=== PATIENT | male | born 1960 | race Caucasian/White ===

== ENCOUNTER 2017-11-26 17:20 | Emergency (ER) | payer MEDICAID, SELFPAY ==
[2017-11-26 17:21] VITALS: BP 127/93; PULSE 74; RESP 16; TEMP 37; O2SAT 96
--- NOTE | 2017-11-26 17:26 | DI.RPTCT_ITS ---
SYMPTOM/DIAGNOSIS: FELL OFF HORSE, ECCHYMOSIS AND PAIN RT FLANK AND LOWER RIBS CHEST, ABDOMEN AND PELVIS CT: 11/26 CT examination of the chest abdomen and pelvis was performed with a bolus infusion of 100 cc Omnipaque 350. There are nondisplaced fractures of the right 10th and 11th ribs posterolaterally. No additional bony injury seen. The lungs are clear. No pleural effusion, pneumothorax or hemothorax. No mediastinal hematoma seen. No vascular injury seen. Tracheal bronchial tree appears intact. Liver, spleen, pancreas, adrenals and kidneys appear normal with no evidence of acute injury. No evidence of vascular injury in the abdomen or pelvis. No abdominal wall injury seen. Small right flank hematoma seen in the subcutaneous fat. No evidence of bowel injury. Appendix appears normal. No abdominal or pelvic adenopathy seen. CONCLUSION: Rib fractures 10th and 11th ribs posterolaterally. No solid organ injury identified. No vascular injury seen.
[2017-11-26 17:40] LABS: Abs Immature Grans 0.05 k/cumm (0.0-0.09); Basophils % 0.7; Eosinophils % 3.2; HCT 42.9 % (40.0-50.0); HGB 14.7 g/dL (13.5-17.5); Immature Grans % 0.4; Lymphocytes % 23.4; Mean Corp. HGB Concentration 34.3 g/dL (32.0-36.0); Mean Corpuscular Hemoglobin 30.6 pg (27.0-33.0); Mean Corpuscular Volume 89.2 fL (80-95); Mean Platelet Volume 10.5 fL (8.0-11.0); Neutrophils % 65.3; Platelet Count 244 x1000/uL (130-400); RBC 4.81 m/cumm (4.50-6.00); RBC Distribution Width 14.5 % (11.8-14.1); White Blood Cell Count 13.65 k/cumm (4.4-10.8)
--- NOTE | 2017-11-26 17:41 | ED.GENADUL_ITS ---
Disposition Clinical Impression: Ribs, multiple fractures Disposition: HOME Condition: Fair Instructions: Rib Fracture (ED) Additional Instructions: Encourage hydration. Encourage deep breathing, use incentive spirometer as was directed by respiratory therapy. Tylenol and/or ibuprofen as needed for discomfort. He may use 1000 mg of Tylenol 4 times daily, 600 mg of ibuprofen 4 times daily. Please stop smoking. Discussed smoking cessation and rib fractures at upcoming appointment with primary care. You may splint the right side with a pillow when coughing to help with discomfort. If you develop difficulty breathing, shortness of breath, increased pain, fever/chills, cough or the new/worsening symptoms please seek care urgently once again. Prescriptions: Ibuprofen 600 mg PO QID PRN #20 tablet PRN Reason: Pain Referrals: Elissa Lam NP [NURSE PRACTITIONER] - Medical Decision Making - Lab Data Laboratory Tests 11/26/17 11/26/17 17:30 17:30 WBC 13.65 H RBC 4.81 Hgb 14.7 Hct 42.9 MCV 89.2 MCH 30.6 MCHC 34.3 RDW 14.5 H Plt Count 244 MPV 10.5 Immature Gran % 0.4 Neutrophils % 65.3 Lymphocytes % 23.4 Monocytes % 7.0 Eosinophils % 3.2 Basophils % 0.7 Absolute Neutrophils 8.91 H Absolute Lymphocytes 3.19 Absolute Monocytes 0.96 H Absolute Eosinophils 0.44 Absolute Basophils 0.10 Sodium 136 Potassium 4.1 Chloride 101 Carbon Dioxide 26.7 Anion Gap 8.3 BUN 16 Creatinine 1.22 Estimated GFR/1.73 m2 >= 60.00 Glucose 108 H Calcium 8.5 Total Bilirubin 0.3 AST 25 ALT 30 Alkaline Phosphatase 93 Total Protein 7.1 Albumin 3.2 L Results reviewed for labs ordered during visit: Yes - Radiology Data Radiology results: report reviewed Right CT of chest, abdomen and pelvis was reviewed by radiologist. Advised that the lungs show minimal dependent changes within the lung bases. No pneumothorax. No significant effusion. Heart is unremarkable no cardiomegaly. No significant pericardial effusion. Liver is unremarkable no mass. Gallbladder is unremarkable no calcified stones or ductal dilation. Pancreas is unremarkable, no ductal dilation or mass. Splenomegaly. The adrenals are significant for mild thickening of the adrenal glands, likely hyperplasia. Kidneys are unremarkable, no hydronephrosis, no solid mass. Stomach and bowel is unremarkable with no obstruction or mucosal thickening. Intraperitoneal space is unremarkable. No significant fluid collection or free air. Joints significant for acute nondisplaced fractures of the right 10th and 11th ribs. Smoothly marginated ossification abutting the anterior surface of the inferior angle of the right scapula likely the sequela of old trauma. An old ununited fracture of the osteochondroma is also possible given the appearance of bone experience. No dislocation. Soft tissues are unremarkable. Vasculature is significant for mild arthrosclerosis of the left subclavian artery origin. No significant stenosis. Mild sclerosis of the abdominal aorta and iliac arteries. No aneurysm. Lymph nodes are unremarkable, no enlarged lymph nodes. - Medical Decision Making Patient presents today after falling off a horse. He has a 12 cm area of swelling and discoloration just inferior to the right CVA. No midline tenderness. No saddle paresthesias. Good range of motion of the lower extremities with no pain. No pain with testing of the pelvis. No abdominal pain. No chest pain. Patient has no midline tenderness over his spine. Good range of motion of his neck without any discomfort. Patient did not strike his head, no LOC. Patient does not have any pain elicited with deep inspiration. Lungs are clear in all carreon. However, patient does have discomfort elicited with coughing. Points to the right CVA as area of pain with coughing. Patient has not had anything as of yet for his discomfort is declining any analgesics at this time. I am concerned given the area of discomfort, mechanism of injury that he may have internal injury. Will obtain CT to evaluate. Discussed this plan with the patient who is in agreement. Vital signs are within normal limits. CT concerning for nondisplaced fractures of the right 10th and 11th ribs. I discussed these findings with the patient.. Encourage deep breathing. I have asked respiratory instructed patient on how to use incentive spirometer. I did advise smoking cessation. Patient does report that he would like to stop smoking. He is going to discuss this further with his primary care upcoming appointment on Friday. Patient is now requesting analgesics. Will give IV Toradol. We discussed [id number] home regimen to help with discomfort. As the patient's pain has been minimal and well-controlled I do not feel that narcotics are appropriate at this point. I am concerned given the low level of discomfort, this may cause him to have increased shallow breathing and increase his risk of pneumonia. I discussed this with the patient. He did respond well to the IV Toradol. Is moving about the room with ease. Patient has upcoming appointment with primary care on Friday for routine checkup. Advised he discuss this further with them as well as smoking cessation. He was given strict return precautions. All his questions and concerns were addressed and he is in agreement with plan. Respiratory therapy evaluated the patient and thought that he use an incentive spirometer is that he may continue this at home. History of Present Illness - General Chief complaint: Trauma Stated complaint: HA[facility] RESCUE Time Seen by Provider: 11/26/17 17:25 Source: patient, RN notes reviewed Mode of arrival: EMS Limitations: no limitations - History of Present Illness Initial comments: Patient is a 56-year-old male presenting today with chief complaint of pain after follow-up of a horse. Patient was riding a horse bareback. States that he slid off a horse and landed on his right side. States that he landed on sand and gravel. Denies striking his head. No loss of consciousness. Denies any headache. No visual change. Denies any neck pain. EMS evaluated the patient advised no midline tenderness. However, they report that he has a large amount of ecchymosis and swelling over the right flank. Patient denies any altered sensation. Denies any incontinence. No nausea vomiting. Denies abdominal pain. Binder was initially applied to the patient but he felt that this was causing increased pain. - Related Data Albuterol Sulfate [Proair Hfa] 2 puff IH PRN PRN 09/16/16 Albuterol/Ipratropium [Duoneb Updraft] 3 ml UPD Q6H #30 vial 09/17/16 Fluticasone/Salmeterol [Advair 100-50 Diskus] 1 puff IH DAILY 11/26/17 Ibuprofen 600 mg PO QID PRN #20 tablet 11/26/17 Tiotropium [place] [Spiriva] 1 inh IH DAILY 11/26/17 Allergies Allergy/AdvReac Type Severity Reaction Status Date / Time No Known Allergies Allergy Unverified 11/26/17 17:52 Review of Systems Constitutional: no symptoms reported. denies: chills, fever Eyes: denies: vision change Respiratory: see HPI Cardiovascular: as per HPI. denies: chest pain, palpitations Gastrointestinal: as per HPI. denies: abdominal pain, nausea, vomiting, diarrhea Genitourinary: denies: urgency (denies incontience) Musculoskeletal: as per HPI. denies: back pain, joint swelling Skin: as per HPI Neurological: denies: headache, weakness, numbness, paresthesias, abnormal gait Past Medical History - Past Medical History Medical history: COPD Surgical history: no surgical history - Social History Alcohol use: none Drug use: none General Exam - General Limitations: no limitations General appearance: alert, in no apparent distress - Head Head exam: Present: atraumatic, normocephalic, normal inspection - Eye Eye exam: Present: normal apperance, PERRL, EOMI. Absent: scleral icterus, conjunctival injection Pupils: Present: normal accommodation - Neck Neck exam: Present: normal inspection, full ROM. Absent: tenderness - Respiratory Respiratory exam: Present: normal lung sounds bilaterally. Absent: respiratory distress, chest wall tenderness (No pain is elicited with AP or lateral pressure applied to the chest wall. However, when the patient coughs he does express discomfort in the lower posterior right side of his ribs.) - Cardiovascular Cardiovascular Exam: Present: regular rate, normal rhythm, normal heart sounds - GI/Abdominal GI/Abdominal exam: Present: soft, normal bowel sounds. Absent: distended, tenderness, guarding, rebound, rigid, organomegaly, mass, pulsatile mass - Rectal Rectal exam: Present: deferred - Extremities Exam Extremities exam: Present: normal inspection (no pain with palpation. Full ROM with no discomfort. Strength equal bilaterally in upper and lower extremities. 5/5 strength in all extremities. No saddle paresthesias. Sensation grossely intact in all extremities. ), full ROM, normal capillary refill. Absent: tenderness, pedal edema, joint swelling, calf tenderness - Back Exam Back exam: Present: full ROM, tenderness (Patient has tenderness over the right flank. There is associated ecchymosis and minimal soft tissue swelling. No midline tenderness. No paraspinal tenderness. Good range of motion. Patient reports that coughing does increase his discomfort.), CVA tenderness (R). Absent: CVA tenderness (L), muscle spasm, paraspinal tenderness, vertebral tenderness, rash noted - Neurological Exam Neurological exam: Present: alert, CN II-XII intact, normal gait. Absent: motor sensory deficit - Psychiatric Psychiatric exam: Present: normal affect, normal mood - Skin Skin exam: Present: warm, dry, intact. Absent: normal color (Ecchymosis as above) Course Vital Signs - 24 hr 11/26/17 17:21 Temperature 37 C Pulse 74 Respiratory 16 Rate Blood Pressure 127/93 Pulse Oximetry 6 L
[2017-11-26 17:44] LABS: Absolute Eosinophil Count 0.44 k/cumm (0.0-0.7); Absolute Lymphocyte Count 3.19 k/cumm (1.2-3.4); Absolute Monocyte Count 0.96 k/cumm (0.11-0.7); Absolute Neutrophil Count 8.91 k/cumm (1.2-6.7)
[2017-11-26] MEDS: Normal Saline 1,000 ML 1000 ML IV (17:50)
--- NOTE | 2017-11-26 18:09 | DI.VRAD_ITS ---
EXAM: CT Chest With Intravenous Contrast CT Abdomen and Pelvis With Intravenous Contrast CLINICAL HISTORY: 56 years old, male; Pain; Other: Fell off horse, rt. Sided ecchymosis and pain to right flank and lower ribs TECHNIQUE: Axial computed tomography images of the chest, abdomen and pelvis with intravenous contrast. All CT scans at this facility use at least one of these dose optimization techniques: automated exposure control; mA and/or kV adjustment per patient size (includes targeted exams where dose is matched to clinical indication); or iterative reconstruction. All CT scans at this facility use at least one of these dose optimization techniques: automated exposure control; mA and/or kV adjustment per patient size (includes targeted exams where dose is matched to clinical indication); or iterative reconstruction. Coronal and sagittal reformatted images were created and reviewed. CONTRAST: 100 mL of Omnipaque 350 administered intravenously. COMPARISON: No relevant prior studies available. FINDINGS: CHEST: Lungs: Minimal dependent changes within the lung bases. Pleural space: No pneumothorax. No significant effusion. Heart: Unremarkable. No cardiomegaly. No significant pericardial effusion. ABDOMEN: Liver: Unremarkable. No mass. Gallbladder and bile ducts: Unremarkable. No calcified stones. No ductal dilation. Pancreas: Unremarkable. No ductal dilation. No mass. Spleen: Unremarkable. No splenomegaly. Adrenals: Mild thickening of the adrenal glands, likely hyperplasia. Kidneys and ureters: Unremarkable. No hydronephrosis. No solid mass. Stomach and bowel: Unremarkable. No obstruction. No mucosal thickening. PELVIS: Appendix: No findings to suggest acute appendicitis. Bladder: Unremarkable. No mass. Reproductive: Unremarkable as visualized. CHEST, ABDOMEN and PELVIS: Intraperitoneal space: Unremarkable. No significant fluid collection. No free air. Bones/joints: Acute nondisplaced fractures of the right 10th and 11th ribs. Smoothly marginated ossification abutting the anterior surface of the inferior angle of the right scapula likely the sequelae of old trauma. An old ununited fracture of an osteochondroma is also possible given the appearance of the bone excrescence. No dislocation. Soft tissues: Unremarkable. Vasculature: Mild atherosclerosis of the left subclavian artery origin. No significant stenosis. Mild atherosclerosis of the abdominal aorta and iliac arteries. No aneurysm. Lymph nodes: Unremarkable. No enlarged lymph nodes. IMPRESSION: 1. Acute nondisplaced fractures of the right 10th and 11th ribs. 2. Other nonemergent findings as described. Dictated and Authenticated by: Ralph Hogde MD. Ordering:RADU SIEGEL MD
[2017-11-26] MEDS: Ketorolac 30 MG/ML VIAL IVP (18:29)
[2017-11-26] MEDS: Omnipaque 350 MG/ML 100 ML BTL IJ (18:35)
[2017-11-26 18:55] LABS: ALT 30 U/L (12-78); AST 25 U/L (15-37); Alkaline Phosphatase 93 U/L (46-116); BUN 16 mg/dL (7-18); Calcium 8.5 mg/dL (8.5-10.1); Glucose 108 mg/dL (70-100)
[2017-11-26 18:56] LABS: Albumin 3.2 g/dL (3.4-5.0); Anion Gap 8.3 mmol/L (3-11); Bilirubin, Total 0.3 mg/dL (0.2-1.0); CO2 26.7 mmol/L (21.0-32.0); CREATININE 1.22 mg/dL (0.70-1.30); Chloride 101 mmol/L (98-107); Potassium 4.1 mmol/L (3.5-5.1); Sodium 136 mmol/L (136-145); Total Protein 7.1 g/dL (6.4-8.2)
== END 2017-11-26 20:46 | disposition home or self-care (01) ==
PROVIDERS: Physician Assistant; Emergency Provider Physician Assistant; PCP Internal Medicine
DX: S22.41XA Multiple fractures of ribs, right side, initial encounter for closed fracture (principal); V80.010A Animal-rider injured by fall from or being thrown from horse in noncollision accident, initial encounter; J44.9 Chronic obstructive pulmonary disease, unspecified
CPT/HCPCS: 36415; 74177; 80053; 96361; 96374; 99285; 71260; 85025; 99284; J1885; J3490

== ENCOUNTER 2019-06-01 12:18 | Outpatient (REF) | payer MEDICAID, SELFPAY ==
[2019-06-01 19:51] LABS: ALT 39 U/L (16-63); AST 20 U/L (15-37); Cholesterol 251 mg/dL (<200); HDL Cholesterol 30 mg/dL (40-60); Triglyceride 524 mg/dL (<150)
[2019-06-01 19:55] LABS: Hemoglobin A1C 5.9 % (3.8-5.6)
[2019-06-01 20:07] LABS: LDL CHOLESTEROL 141 mg/dL (<100)
[2019-06-03 10:51] LABS: PSA, Screening 0.4 ng/mL (0.0-4.5)
== END 2019-06-01 12:38 ==
LOC: NCHCN 12:18
PROVIDERS: PCP Internal Medicine; Visit Provider Nurse Practitioner Family
DX: E78.5 Hyperlipidemia, unspecified (principal); R73.9 Hyperglycemia, unspecified; Z12.5 Encounter for screening for malignant neoplasm of prostate
CPT/HCPCS: 80061; 83721; 84153; 83036; 84450; 84460

== ENCOUNTER 2020-09-05 12:31 | Outpatient (REF) | payer MEDICAID, SELFPAY ==
[2020-09-05 16:03] LABS: HCT 46.5 % (40.0-50.0); HGB 15.8 g/dL (13.5-17.5); MCH 30.6 pg (27.0-33.0); MCV 90.1 fL (80-95); MPV 10.7 fL (8.0-11.0); Platelet Count 301 10^3/uL (130-400); RBC 5.16 10^6/uL (4.36-5.78); RDW 13.9 % (11.8-14.1); RDW-SD 46.7 fL
== END 2020-09-05 12:32 | disposition home or self-care (01) ==
LOC: NCHCN 12:31
PROVIDERS: PCP Internal Medicine; Visit Provider Nurse Practitioner Family
DX: R73.03 Prediabetes (principal); R06.02 Shortness of breath
CPT/HCPCS: 85027; 83036

== ENCOUNTER 2020-10-24 12:25 | Emergency (ER) | payer MEDICAID, SELFPAY ==
--- NOTE | 2020-10-24 13:29 | NUR.NOTE ---
Nursing Note: Entered in error by Access. Nicki Martinez
== END 2020-10-24 12:35 ==
PROVIDERS: Emergency Provider Physician Assistant; PCP Internal Medicine
DX: R69 Illness, unspecified (principal)

== ENCOUNTER 2021-09-04 15:46 | Outpatient (REF) | payer MEDICAID, SELFPAY ==
[2021-09-04 19:29] LABS: Anion Gap 8.4 mmol/L (3-11); BUN 12 mg/dL (7-18); CO2 27.6 mmol/L (21.0-32.0); CREATININE 1.3 mg/dL (0.70-1.30); Calcium 8.9 mg/dL (8.5-10.1); Chloride 104 mmol/L (98-107); Estimated GFR 55.94 (mL/min/1.73m2); Glucose 95 mg/dL (74-106); Potassium 4.2 mmol/L (3.5-5.1); Sodium 140 mmol/L (136-145)
== END 2021-09-04 15:47 | disposition home or self-care (01) ==
LOC: NCHCN 15:46
PROVIDERS: PCP Internal Medicine; Visit Provider Nurse Practitioner Family
DX: R73.03 Prediabetes (principal)
CPT/HCPCS: 80048

== ENCOUNTER 2022-03-18 03:53 | Outpatient (CLI) | payer MEDICAID, SELFPAY ==
[2022-03-18] MEDS: Albuterol HFA 18 GM 200 PUFF INH IH (11:44)
[2022-03-18] MEDS: Inhaler, Assist Device 1 EACH MC (11:44)
--- NOTE | 2022-03-18 14:21 | W.PFT ---
Date of service: 03/18/22 Time of Service: 10:07 Pulmonary Function Test Result Indications: COPD Note: 6 Minute Walk Test Distance walked: 900 feet Desaturations: 97% to 93% Heart rate changes: 106bpm to 114bpm Recommendation:No exertional supplemental O2 needed. Sheryl Thomas MD Pulmonary & Critical Care Medicine Clinical Correlation therefore is recommended.
--- NOTE | 2022-03-20 12:29 | W.PFT ---
Date of service: 03/18/22 Time of Service: 10:20 Pulmonary Function Test Result Requesting Provider Martha Indications: COPD Interpretation Spirometry: There is severe airflow limitation. There is a significant bronchodilator response. Lung Volumes: There is hyperinflation and air trapping Diffusion Capacity: There is a reduced diffusion Airway Pressure: Increased airways resistance. Impression Severe airflow obstruction with significant air trapping and a decreased diffusion. 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 Clinical Correlation therefore is recommended.
--- NOTE | 2022-04-10 12:50 | W.PFT ---
Date of service: 03/20/22 Time of Service: 20:07 Pulmonary Function Test Result Requesting Provider Martha Indications: COPD Note: Overnight Oximetry Amount of time analyzed: 9 hours 49 minutes on 3LPM Number of minutes under 88%: 28.7 min MARILYNN: 5.5 Appearance of oxygen saturation pattern:Some sharp decreases that may be consistent with sleep apnea Recommendation:Recommend sleep study given use of nocturnal O2 during test. Sheryl Thomas MD Pulmonary & Critical Care Medicine Clinical Correlation therefore is recommended.
== END 2022-03-18 03:54 | disposition home or self-care (01) ==
LOC: RT 03:53
PROVIDERS: PCP Internal Medicine; Visit Provider Student in an Organized Health Care Education/Training Program
DX: J44.9 Chronic obstructive pulmonary disease, unspecified (principal); J98.8 Other specified respiratory disorders; J98.4 Other disorders of lung
CPT/HCPCS: 94060; 94618; 94726; 94729; 94762

== ENCOUNTER 2022-07-17 16:01 | Outpatient (REF) | payer MEDICAID, SELFPAY ==
[2022-07-17 20:30] LABS: ALT 38 U/L (16-63); AST 20 U/L (15-37); Albumin 3.6 g/dL (3.4-5.0); Alkaline Phosphatase 109 U/L (46-116); Anion Gap 5.7 mmol/L (3-11); BUN 14 mg/dL (7-18); Bilirubin, Total 0.4 mg/dL (0.2-1.0); CO2 29.3 mmol/L (21.0-32.0); CREATININE 1.2 mg/dL (0.70-1.30); Calcium 9.2 mg/dL (8.5-10.1); Chloride 102 mmol/L (98-107); Estimated GFR 67.95 (mL/min/1.73m2); Glucose 97 mg/dL (74-106); Potassium 4.5 mmol/L (3.5-5.1); Sodium 137 mmol/L (136-145); Total Protein 7.8 g/dL (6.4-8.2)
== END 2022-07-17 16:02 | disposition home or self-care (01) ==
LOC: NCHCN 16:01
PROVIDERS: PCP Internal Medicine; Visit Provider Nurse Practitioner Family
DX: E11.65 Type 2 diabetes mellitus with hyperglycemia (principal)
CPT/HCPCS: 80053

== ENCOUNTER 2022-10-29 02:27 | Outpatient (CLI) | payer MEDICAID, SELFPAY ==
--- NOTE | 2022-10-29 08:00 | DI.CTLCSR_ITS ---
Exam(s) CT CHEST LUNG CANCER SCREEN EXAM: CT CHEST LUNG CANCER SCREEN CLINICAL HISTORY: Screening for lung cancer,current smoker, f17.210. TECHNIQUE: Imaging Protocol: Low Dose Technique CONTRAST MATERIAL: None FINDINGS: CHEST: LUNGS: There are no ominous pulmonary nodules. There are no confluent infiltrates. No pleural effusi ons. MEDIASTINUM: There is no obvious hilar nor mediastinal adenopathy. CARDIAC: Heart size is normal. There is no pericardial effusion.Caliber of the thoracic aorta is wit hin normal limits. OTHER: OSSEOUS: Right rib fractures again noted. Also nonacute fracture of the inferior aspect of the right scapula again evident.. IMPRESSION: 1. No ominous pulmonary nodules nor pleural effusions. No intrathoracic adenopathy. 2. Nonacute right rib fractures again evident. 3. Lung RADS Cat 1 - Negative: No nodules and definitely benign nodules Lung-RADS 1.0 CATEGORIES: Category 0 - Prior chest CT exam(s) being located for comparison. Category 1 - Annual screening in 12 months. No nodules or definitely benign nodules. Category 2 - Annual screening in 12 months. Benign appearance. Nodules with low likelihood of becomin g active cancer. Category 3 - 6-month follow-up. Probably benign. Short-term follow-up suggested. Nodules with low lik elihood of becoming active cancer. Category 4A - 3-month follow-up and CT/PET if >8 mm in size. Suspicious finding. Findings which requi re additional testing. Category 4B - Findings which require additional testing and tissue sampling. Category 4X - Category 3 or 4 nodules with additional features or imaging findings that increases the suspicion of malignancy. Modifier S- Potentially clinically significant findings (non lung cancer) RADIATION DOSE DELIVERED: Total DLP DATA REPOSITORY: All CT scans at this facility are submitted to the National Radiology Data Registry (NRDR) Dose Index Registry (DIR) with the [employer] (ACR). RADIATION OPTIMIZATION: All CT scans at this facility use at least one of these dose optimization te chniques: automated exposure control; mA and/or kV adjustment per patient size (includes targeted exa ms where dose is matched to clinical indication); or iterative reconstruction.
== END 2022-10-29 02:47 ==
PROVIDERS: PCP Internal Medicine; Visit Provider Physician Assistant Surgical
DX: F17.210 Nicotine dependence, cigarettes, uncomplicated (principal); Z12.2 Encounter for screening for malignant neoplasm of respiratory organs
CPT/HCPCS: 71271

== ENCOUNTER → 2023-11-05 01:00 | Outpatient (CLI) | payer MEDICAID, SELFPAY ==
--- NOTE | 2023-11-05 07:15 | DI.CTLCSR_ITS ---
Exam(s) CT CHEST LUNG CANCER SCREEN EXAM: CT CHEST LUNG CANCER SCREEN CLINICAL HISTORY: Screening for lung cancer, current smoker, F17.210 TECHNIQUE: Imaging Protocol: Axial computed tomography images with coronal and sagittal reformatted images were created and reviewed CT CT CHEST LUNG CANCER SCREEN from 10/29/2022 FINDINGS: Tracheobronchial tree: Patent where visualized. No bronchiectasis. Pulmonary parenchyma: No consolidation or dominant measurable mass. There is scarring seen in the rig ht middle lobe, left lingular and right lower lobe. Lung Nodules: None. Mediastinum and Cony: No dominant adenopathy or fluid collection. The esophagus is unremarkable. Thyroid gland: Unremarkable. Lymph nodes: Unremarkable. Pleura: No effusion or pneumothorax. Heart: The heart is not dilated. Coronary artery calcification is present. No pericardial effusion. Aorta: Thoracic aorta non-dilated.Atherosclerotic calcification is present. Upper abdomen: Unremarkable. Soft Tissues: Unremarkable. Bones: Within normal limits. There are old fractures. IMPRESSION: No pulmonary nodules. Lung RADS Cat 1 - Negative: No nodules and definitely benign nodules Lung-RADS 1.0 CATEGORIES: Category 0 - Prior chest CT exam(s) being located for comparison. Category 1 - Annual screening in 12 months. No nodules or definitely benign nodules. Category 2 - Annual screening in 12 months. Benign appearance. Nodules with low likelihood of becomin g active cancer. Category 3 - 6-month follow-up. Probably benign. Short-term follow-up suggested. Nodules with low lik elihood of becoming active cancer. Category 4A - 3-month follow-up and CT/PET if >8 mm in size. Suspicious finding. Findings which requi re additional testing. Category 4B - Findings which require additional testing and tissue sampling. Suspicious finding. Category 4X - Category 3 or 4 nodules with additional features or imaging findings that increases the suspicion of malignancy. Modifier S- Potentially clinically significant finding. (Non lung cancer) RADIATION DOSE DELIVERED: Total DLP Total DLP DATA REPOSITORY: All CT scans at this facility are submitted to the National Radiology Data Registry (NRDR) Dose Index Registry (DIR) with the [employer] (ACR). RADIATION OPTIMIZATION: All CT scans at this facility use at least one of these dose optimization te chniques: automated exposure control; mA and/or kV adjustment per patient size (includes targeted exa ms where dose is matched to clinical indication); or iterative reconstruction.
== END ==
PROVIDERS: PCP Internal Medicine; Visit Provider Student in an Organized Health Care Education/Training Program
DX: F17.210 Nicotine dependence, cigarettes, uncomplicated (principal)
CPT/HCPCS: 71271

== ENCOUNTER 2024-04-26 16:48 | Outpatient (REF) | payer MEDICAID, SELFPAY ==
[2024-04-26 19:03] LABS: ALT 32 U/L (16-63); Albumin 3.7 g/dL (3.4-5.0); Alkaline Phosphatase 98 U/L (46-116); BUN 16 mg/dL (7-18); Bilirubin, Total 0.46 mg/dL (0.2-1.0); CREATININE 1.2 mg/dL (0.70-1.30); Calcium 9.4 mg/dL (8.5-10.1); Chloride 104 mmol/L (98-107); Estimated GFR 67.11 (mL/min/1.73m2); Glucose 108 mg/dL (74-106); Potassium 4.3 mmol/L (3.5-5.1); Sodium 139 mmol/L (136-145); Total Protein 7.9 g/dL (6.4-8.2)
[2024-04-26 19:11] LABS: AST 26 U/L (15-37)
[2024-04-27 09:41] LABS: Cholesterol 254 mg/dL (<200); HDL Cholesterol 35 mg/dL (40-60); Triglyceride 515 mg/dL (<150)
[2024-04-27 09:52] LABS: LDL CHOLESTEROL 137 mg/dL (<100)
== END 2024-04-26 16:49 | disposition home or self-care (01) ==
LOC: NCHCN 16:48
PROVIDERS: PCP Internal Medicine; Visit Provider Nurse Practitioner Family
DX: E78.5 Hyperlipidemia, unspecified (principal)
CPT/HCPCS: 80053; 80061; 83721

== ENCOUNTER 2024-08-12 10:34 | Outpatient (REF) | payer MEDICAID, SELFPAY ==
[2024-08-12 11:26] LABS: Abs Immature Grans 0.01 10^3/uL (0.0-0.06); Absolute Basophil Count 0.12 10^3/uL (0.0-0.2); Absolute Eosinophil Count 0.36 10^3/uL (0.0-0.7); Absolute Lymphocyte Count 3.36 10^3/uL (1.2-3.4); Absolute Monocyte Count 0.68 10^3/uL (0.1-0.8); Absolute Neutrophil Count 4.92 10^3/uL (1.2-6.7); Basophils % 1.3 %; Eosinophils % 3.8 %; HCT 46.3 % (40.0-50.0); HGB 15.1 g/dL (13.5-17.5); Immature Grans % 0.1 %; Lymphocytes % 35.6 %; MCH 29.4 pg (27.0-33.0); MCHC 32.6 % (32.0-36.0); MCV 90 fL (80-95); MPV 10.2 fL (8.0-11.0); Monocytes % 7.2 %; Platelet Count 312 10^3/uL (130-400); RBC 5.14 10^6/uL (4.36-5.78); RDW 14.2 % (11.8-14.1); RDW-SD 46.5 fL; WBC 9.45 10^3/uL (4.4-10.8)
== END 2024-08-12 10:35 | disposition home or self-care (01) ==
LOC: LBN 10:34
PROVIDERS: PCP Internal Medicine; Visit Provider Physician Assistant Surgical
DX: J44.9 Chronic obstructive pulmonary disease, unspecified (principal); F17.210 Nicotine dependence, cigarettes, uncomplicated
CPT/HCPCS: 85025

== ENCOUNTER 2024-11-17 14:39 | Outpatient (REF) | payer MEDICAID, SELFPAY ==
[2024-11-17 20:44] LABS: ALT 34 U/L (16-63); AST 26 U/L (15-37); Albumin 3.6 g/dL (3.4-5.0); Alkaline Phosphatase 105 U/L (46-116); Anion Gap 5.1 mmol/L (3-11); BUN 11 mg/dL (7-18); Bilirubin, Total 0.5 mg/dL (0.2-1.0); CO2 30.9 mmol/L (21.0-32.0); Calcium 8.9 mg/dL (8.5-10.1); Chloride 103 mmol/L (98-107); Cholesterol 215 mg/dL (<200); Estimated GFR 67.11 (mL/min/1.73m2); Glucose 107 mg/dL (74-106); HDL Cholesterol 30 mg/dL (>or=40); Potassium 4.8 mmol/L (3.5-5.1); Sodium 139 mmol/L (136-145); Total Protein 7.4 g/dL (6.4-8.2); Triglyceride 413 mg/dL (<150)
[2024-11-18 19:22] LABS: LDL CHOLESTEROL 103 mg/dL (<100)
[2024-11-18 22:06] LABS: PSA, Screening 0.7 ng/mL (<=4.5)
== END 2024-11-17 14:40 | disposition home or self-care (01) ==
LOC: NCHCN 14:39
PROVIDERS: PCP Internal Medicine; Visit Provider Nurse Practitioner Family
DX: E78.5 Hyperlipidemia, unspecified (principal); N40.0 Benign prostatic hyperplasia without lower urinary tract symptoms
CPT/HCPCS: 80053; 80061; 83721; 84153